=== PATIENT | male | born 1960 | race Caucasian/White ===

== ENCOUNTER 2017-06-29 13:56 | Emergency (ER) | payer BC, OTHER ==
[2017-06-29] MEDS: KETOROLAC 60 MG/2 ML INJ. IM ×2 (17:02)
== END 2017-06-29 17:30 | disposition home or self-care (01) ==
LOC: ER 17:30
DX: R51 Headache (principal); R09.89 Other specified symptoms and signs involving the circulatory and respiratory systems; R05 Cough; M19.90 Unspecified osteoarthritis, unspecified site; I10 Essential (primary) hypertension; G89.29 Other chronic pain; Z88.0 Allergy status to penicillin
CPT/HCPCS: 70450; 96372; 99284-25; J1885